=== PATIENT | male | born 1980 | race Caucasian/White ===

== ENCOUNTER 2019-01-25 12:54 | Emergency (ER) | payer OTHER ==
[~2019-01-25] VITALS: Ht 172.7 cm; Wt 98.0 kg
[2019-01-25] MEDS ORDERED: BENZONATATE 100 MG CAPSULE. PO ONE (13:15)
[2019-01-25] MEDS ORDERED: predniSONE 10 MG TABLET PO ONE (13:15)
[2019-01-25] MEDS ORDERED: IPRATRPIUM/ALBUTEROL 0.5/2.5MG 3 ML NEBU. NEB ONE (13:15)
--- NOTE | 2019-01-25 13:21 | PHYS DOC ---
Past Medical History Past Medical History: No Pertinent History Past Surgical History: Other Additional Past Surgical Histo: ORTHOPEDIC Additional Information: 1 PPD Alcohol Use: None Drug Use: None Adult General Chief Complaint Chief Complaint: SHORTNESS OF BREATH HPI HPI Patient is a 38 year old male with history of smoking who presents to the ED complaining of cough productive in nature with shortness of breath that began 5 days ago. Patient states for the last couple days he has noted he has blood tinged sputum. Patient denies any fever. Denies any nasal congestion. Review of Systems Review of Systems Constitutional: Denies fever or chills [] Eyes: Denies change in visual acuity, redness, or eye pain [] HENT: Denies nasal congestion or sore throat [] Respiratory: Reports bloody sputum cough and shortness of breath [] Cardiovascular: No additional information not addressed in HPI [] GI: Denies abdominal pain, nausea, vomiting, bloody stools or diarrhea [] : Denies dysuria or hematuria [] Musculoskeletal: Denies back pain or joint pain [] Integument: Denies rash or skin lesions [] Neurologic: Denies headache, focal weakness or sensory changes [] All other systems were reviewed and found to be within normal limits, except as documented in this note. Current Medications Current Medications Current Medications Medications (Trade) Dose Ordered Sig/Denise Start Time Stop Time Status Last Admin Dose Admin Albuterol/ Ipratropium (Duoneb) 3 ml 1X ONCE 01/25/19 13:15 01/25/19 13:19 DC 01/25/19 13:31 3 ML Benzonatate (Tessalon Perle) 100 mg 1X ONCE 01/25/19 13:15 01/25/19 13:19 DC 01/25/19 13:27 100 MG Prednisone (Prednisone) 50 mg 1X ONCE 01/25/19 13:15 01/25/19 13:19 DC 01/25/19 13:27 50 MG Allergies Allergies Allergies Coded Allergies Type Severity Reaction Last Updated Verified No Known Drug Allergies 01/25/19 No Physical Exam Physical Exam Constitutional: Well developed, well nourished, no acute distress, non-toxic appearance. [] HENT: Normocephalic, atraumatic, bilateral external ears normal, oropharynx moist, no oral exudates, nose normal. [] Eyes: PERRLA, EOMI, conjunctiva normal, no discharge. [] Neck: Normal range of motion, no tenderness, supple, no stridor. [] Cardiovascular:Heart rate regular rhythm, no murmur [] Lungs & Thorax: Bilateral breath sounds clear to auscultation [] Abdomen: Bowel sounds normal, soft, no tenderness, no masses, no pulsatile masses. [] Skin: Warm, dry, no erythema, no rash. [] Back: No tenderness, no CVA tenderness. [] Extremities: No tenderness, no cyanosis, no clubbing, ROM intact, no edema. [] Neurologic: Alert and oriented X 3, normal motor function, normal sensory function, no focal deficits noted. [] Psychologic: Affect normal, judgement normal, mood normal. [] Current Patient Data Vital Signs Vital Signs Date Time Temp Pulse Resp B/P (MAP) Pulse Ox O2 Delivery O2 Flow Rate FiO2 01/25/19 15:40 86 20 134/92 (106) 94 Room Air 01/25/19 14:40 2.5 01/25/19 13:06 98.6 98.6 Lab Values Laboratory Tests Test 01/25/19 13:20 White Blood Count 10.2 x10^3/uL (4.0-11.0) Red Blood Count 6.05 x10^6/uL (4.30-5.70) H Hemoglobin 18.4 g/dL (13.0-17.5) H Hematocrit 52.9 % (39.0-53.0) Mean Corpuscular Volume 88 fL (79-100) Mean Corpuscular Hemoglobin 30 pg (25-35) Mean Corpuscular Hemoglobin Concent 35 g/dL (31-37) Red Cell Distribution Width 13.2 % (11.5-14.5) Platelet Count 212 x10^3/uL (140-400) Neutrophils (%) (Auto) 72 % (31-73) Lymphocytes (%) (Auto) 17 % (24-48) L Monocytes (%) (Auto) 5 % (0-9) Eosinophils (%) (Auto) 5 % (0-3) H Basophils (%) (Auto) 1 % (0-3) Neutrophils # (Auto) 7.4 x10^3uL (1.8-7.7) Lymphocytes # (Auto) 1.8 x10^3/uL (1.0-4.8) Monocytes # (Auto) 0.5 x10^3/uL (0.0-1.1) Eosinophils # (Auto) 0.5 x10^3/uL (0.0-0.7) Basophils # (Auto) 0.1 x10^3/uL (0.0-0.2) D-Dimer (Jade) < 0.27 ug/mlFEU Sodium Level 141 mmol/L (136-145) Potassium Level 3.9 mmol/L (3.5-5.1) Chloride Level 103 mmol/L (98-107) Carbon Dioxide Level 30 mmol/L (21-32) Anion Gap 8 (6-14) Blood Urea Nitrogen 20 mg/dL (8-26) Creatinine 1.3 mg/dL (0.7-1.3) Estimated GFR (Cockcroft-Gault) 61.5 Glucose Level 155 mg/dL (70-99) H Calcium Level 9.2 mg/dL (8.5-10.1) Troponin I Quantitative < 0.017 ng/mL (0.000-0.055) Laboratory Tests 01/25/19 13:20 Laboratory Tests 01/25/19 13:20 EKG EKG 13:[address] Young sinus tachycardia, HR 102 no STEMI[] Radiology/Procedures Radiology/Procedures []PROCEDURE: CHEST PA & LATERAL Chest, PA and Lateral: Technique: PA and lateral views of the chest were obtained. History: Cough. Comparison: None. Findings: The cardiomediastinal silhouette grossly appears unremarkable. Minimal right lung base airspace opacities likely atelectasis or infiltrates. IMPRESSION: Minimal right lung base airspace opacities likely atelectasis or infiltrates. Electronically signed by: Alexandre Avilez MD (01/25/2019 2:23 PM) [facility] DICTATED and SIGNED BY: ALEXANDRE AVILEZ MD DATE: 01/25/19 142 Course & Med Decision Making Course & Med Decision Making Pertinent Labs and Imaging studies reviewed. (See chart for details) This is a 38-year-old male patient with history of smoking presenting today with a productive cough with bloody sputum for 5 days. Patient was advised to consider smoking cessation. On arrival to the ED temperature was 98.6, heart rate 105, respiration 20 room air, blood pressure 172/91, O2 sats 96%. CBC with a normal WBC, BMP with no acute findings, d-dimer is normal. Chest x-ray noted for possible infiltrate or atelectasis. Considering his symptoms I will treat this patient for pneumonia with doxycycline. His blood pressure was high on arrival to the ED. Advised patient to start following up with the PCP to make sure he does not have hypertension. His provided return precautions and discharged in stable condition. Dragon Disclaimer Dragon Disclaimer This electronic medical record was generated, in whole or in part, using a voice recognition dictation system. Departure Departure Impression: Primary Impression: Smoking addiction Additional Impressions: Right lower lobe pneumonia Elevated blood pressure reading Disposition: HOME, SELF-CARE Condition: STABLE Patient Instructions: Hypertension, Pneumonia, Adult, Smoking Cessation Additional Instructions: You were evaluated in the emergency room on the chest x-ray was suspicious for pneumonia. We'll put you on antibiotics, take them to completion. Please consider smoking cessation. Please follow-up with your primary care doctor, your blood pressure is running high. Scripts Albuterol Sulfate (Proair Hfa) 8.5 Gm Hfa.aer.ad 1 PUFF INH PRN Q6HRS PRN for SHORTNESS OF BREATH, #1 INHALER Prov: CHAYO BROWN APRN 01/25/19 Benzonatate (TESSALON PERLE) 100 Mg Capsule 1 CAP PO TID, #30 CAP Prov: CHAYO BROWN APRN 01/25/19 Doxycycline Hyclate (DOXYCYCLINE HYCLATE) 100 Mg Tablet 1 TAB PO BID, #14 TAB Prov: CHAYO BROWN APRN 01/25/19 Problem Qualifiers Additional Impressions: Right lower lobe pneumonia Pneumonia type: due to unspecified organism Qualified Codes: J18.1 - Lobar pneumonia, unspecified organism CHAYO BROWN APRN January 25, 2019 13:21
[2019-01-25 13:44] LABS: BASO # 0.1 x10^3/uL (0.0-0.2); BASO % 1 % (0-3); EOS # 0.5 x10^3/uL (0.0-0.7); EOS % 5 % (0-3); HEMATOCRIT 52.9 % (39.0-53.0); HEMOGLOBIN 18.4 g/dL (13.0-17.5); LYMPH # 1.8 x10^3/uL (1.0-4.8); LYMPH % 17 % (24-48); MEAN CORPUSCULAR HEMOGLOBIN 30 pg (25-35); MEAN CORPUSCULAR HGB CONC 35 g/dL (31-37); MEAN CORPUSCULAR VOLUME 88 fL (79-100); MONO # 0.5 x10^3/uL (0.0-1.1); MONO % 5 % (0-9); NEUT # 7.4 x10^3uL (1.8-7.7); NEUT % 72 % (31-73); PLATELET COUNT 212 x10^3/uL (140-400); RED BLOOD COUNT 6.05 x10^6/uL (4.30-5.70); RED CELL DISTRIBUTION WIDTH 13.2 % (11.5-14.5); WHITE BLOOD COUNT 10.2 x10^3/uL (4.0-11.0)
[2019-01-25 13:48] LABS: CALCIUM 9.2 mg/dL (8.5-10.1); CREATININE 1.3 mg/dL (0.7-1.3); GFR 61.5; POTASSIUM 3.9 mmol/L (3.5-5.1)
--- NOTE | 2019-01-25 14:25 | RAD ---
Chest, PA and Lateral: Technique: PA and lateral views of the chest were obtained. History: Cough. Comparison: None. Findings: The cardiomediastinal silhouette grossly appears unremarkable. Minimal right lung base airspace opacities likely atelectasis or infiltrates. IMPRESSION: Minimal right lung base airspace opacities likely atelectasis or infiltrates. Electronically signed by: Alexandre Avilez MD (01/25/2019 2:23 PM) [facility]
[2019-01-25 15:40] VITALS: BP 134/92
[2019-01-25] MEDS ORDERED: ALBU2.5V8 INH (15:43)
[2019-01-25] MEDS ORDERED: BENZ100C PO (15:43)
[2019-01-25] MEDS ORDERED: DOXY100T PO (15:43)
--- NOTE | 2019-01-27 07:10 | EKG ---
[facility] [address] [place] [address] Test Date: 2019-01-25 Test Time: 13:12:46 Pat Name: TARYN AGUILAR Department: Room: Gender: M Long Term: : 1980 Requested By: CHAYO BROWN Order Number: [id number] Reading MD: Juan F Sheikh Measurements Intervals [place] Rate: 102 P: 42 [place]: 156 QRS: -62 QRSD: 90 T: 20 QT: 324 QTc: 426 Interpretive Statements SINUS TACHYCARDIA Electronically Signed On 02-14-2019 12:41:54 CDT by Juan F Sheikh
== END 2019-01-25 15:48 | disposition home or self-care (01) ==
LOC: ER 12:54
DX: J18.1 Lobar pneumonia, unspecified organism (principal); R03.0 Elevated blood-pressure reading, without diagnosis of hypertension; F17.200 Nicotine dependence, unspecified, uncomplicated
CPT/HCPCS: 36415; 71046; 80048; 84484; 85025; 85379; 93005; 94640; 99285; J7512; J7620

== ENCOUNTER 2019-01-26 15:14 | Inpatient (IN) | payer OTHER ==
[~2019-01-26] VITALS: Ht 172.7 cm; Wt 98.4 kg
[~2019-01-26 15:14] MED LIST: ALBU2.5V8 INH; BENZ100C PO; DOXY100T PO
[2019-01-26] MEDS ORDERED: methylPREDNISolone SOD SUCC PF 125 MG/2 ML VIAL. IV ONE (15:30)
[2019-01-26] MEDS ORDERED: IPRATRPIUM/ALBUTEROL 0.5/2.5MG 3 ML NEBU. NEB ONE (15:30)
[2019-01-26] MEDS ORDERED: cefTRIAXone IV Push 1 GM VIAL. IVP ONE (15:30)
[2019-01-26 16:02] LABS: BASO # 0.1 x10^3/uL (0.0-0.2); BASO % 1 % (0-3); EOS # 0.4 x10^3/uL (0.0-0.7); EOS % 2 % (0-3); HEMATOCRIT 49.7 % (39.0-53.0); HEMOGLOBIN 17.2 g/dL (13.0-17.5); LYMPH # 2.4 x10^3/uL (1.0-4.8); LYMPH % 14 % (24-48); MEAN CORPUSCULAR HEMOGLOBIN 30 pg (25-35); MEAN CORPUSCULAR HGB CONC 35 g/dL (31-37); MEAN CORPUSCULAR VOLUME 87 fL (79-100); MONO # 0.9 x10^3/uL (0.0-1.1); MONO % 5 % (0-9); NEUT # 14.1 x10^3uL (1.8-7.7); NEUT % 79 % (31-73); PLATELET COUNT 203 x10^3/uL (140-400); RED CELL DISTRIBUTION WIDTH 13.9 % (11.5-14.5); WHITE BLOOD COUNT 17.9 x10^3/uL (4.0-11.0)
--- NOTE | 2019-01-26 16:09 | RAD ---
Chest, PA and Lateral: Technique: PA and lateral views of the chest were obtained. History: Cough. Comparison: 01/25/2019. Findings: The heart and pulmonary vasculature appear within normal limits. Minimal bibasilar lung airspace opacities likely atelectasis or infiltrates.. The pleural margins are clear. Impression: Mild bibasilar lung airspace opacities likely atelectasis or infiltrate similar to prior exam.. Electronically signed by: Alexandre Avilez MD (01/26/2019 4:06 PM) [facility]
[2019-01-26 16:10] LABS: CALCIUM 9.1 mg/dL (8.5-10.1); CREATININE 1.2 mg/dL (0.7-1.3); GFR 67.4; POTASSIUM 3.5 mmol/L (3.5-5.1)
[2019-01-26 16:30] LABS: % EOS 2 % (0-5); % LYMPHS 19 % (24-48); % MONOS 4 % (0-10); % SEGS 74 % (35-66)
[2019-01-26] MEDS ORDERED: IBUPROFEN 400 MG TABLET. PO ONE (16:30)
[2019-01-26] MEDS ORDERED: HYDROcodone/APAP 5/325MG 1 TAB TABLET PO ONE (16:30)
[2019-01-26 16:31] LABS: % BANDS 1 % (0-9); PLT ESTIMATE ADEQUATE (ADEQUATE)
[2019-01-26 16:36] LABS: BARBITURATES NEG (NEG); BENZODIAZEPINES NEG (NEG); CANNABINOIDS NEG (NEG); COCAINE NEG (NEG); METHADONE NEG (NEG); OPIATES NEG (NEG); PHENCYCLIDINE NEG (NEG)
[2019-01-26 16:37] LABS: AMPHETAMINE/METHAMPHETAMINE NEG (NEG)
[2019-01-26] MEDS: IV NORMAL SALINE 1000ML BAG 1,000 ML IV SCH ×3 (16:42→23:20)
[2019-01-26] MEDS ORDERED: AZITHRMYCN 500MG IVPB FOR OMNI 250 ML IV ONE (16:45)
--- NOTE | 2019-01-26 16:47 | PHYS DOC ---
Past Medical History Past Medical History: No Pertinent History (CHAYO BROWN APRN) Past Surgical History: Other Additional Past Surgical Histo: ORTHOPEDIC (CHAYO BROWN APRN) Alcohol Use: None Drug Use: None (CHAYO BROWN APRN) Adult General Chief Complaint Chief Complaint: SHORTNESS OF BREATH HPI HPI Patient is a 38 year old white male with a history of smoking who presents today with worsening cough and shortness of breath. Patient was seen in the ED yesterday, was diagnosed with mild pneumonia, was discharged with doxycycline, he was given Solu-Medrol yesterday as well as breathing treatment. He states symptoms did not improve the got worse. He states he took 3 doses of doxycycline and has had nausea and vomiting from the doxycycline. Patient denies any fever. His states his head is hurting from the coughing as well as his chest. Patient is in the ED with the significant other who is complaining stating he should've admitted patient yesterday. They've informed them yesterday this patient is young and can be managed as an outpatient and did not meet any criteria for hospitalization for possible pneumonia. continues to complain stating"is the older than yesterday, because you didn't admit him yesterday"informed patient did not meet criteria for admission yesterday. (CHAYO BROWN APRN) Review of Systems Review of Systems Constitutional: Denies fever or chills [] Eyes: Denies change in visual acuity, redness, or eye pain [] HENT: Denies nasal congestion or sore throat [] Respiratory: Reports cough and shortness of breath [] Cardiovascular: No additional information not addressed in HPI [] GI: Denies abdominal pain, nausea, vomiting, bloody stools or diarrhea [] : Denies dysuria or hematuria [] Musculoskeletal: Denies back pain or joint pain [] Integument: Denies rash or skin lesions [] Neurologic: Reports headache denies focal weakness or sensory changes [] All other systems were reviewed and found to be within normal limits, except as documented in this note. (CHAYO BROWN APRN) Current Medications Current Medications Current Medications Medications (Trade) Dose Ordered Sig/Denise Start Time Stop Time Status Last Admin Dose Admin Acetaminophen/ Hydrocodone Bitart (Lortab 5/325) 2 tab 1X ONCE 01/26/19 16:30 01/26/19 16:31 DC 01/26/19 16:32 2 TAB Albuterol/ Ipratropium (Duoneb) 3 ml 1X ONCE 01/26/19 15:30 01/26/19 15:33 DC 01/26/19 16:46 3 ML Azithromycin 250 ml @ 250 mls/hr 1X ONCE 01/26/19 16:45 01/26/19 17:44 DC 01/26/19 17:09 250 MLS/HR Ceftriaxone Sodium (Rocephin) 1 gm 1X ONCE 01/26/19 15:30 01/26/19 15:33 DC 01/26/19 16:09 1 GM Ibuprofen (Motrin) 800 mg 1X ONCE 01/26/19 16:30 01/26/19 16:31 DC 01/26/19 16:32 800 MG Methylprednisolone Sodium Succinate (SOLU-Medrol 125MG VIAL) 125 mg 1X ONCE 01/26/19 15:30 01/26/19 15:33 DC 01/26/19 16:09 125 MG Sodium Chloride 1,000 ml @ 166.667 mls/hr Q6H 01/26/19 16:31 01/27/19 04:51 01/26/19 18:38 166.667 MLS/HR (RAFI KAMARA DO) Allergies Allergies Allergies Coded Allergies Type Severity Reaction Last Updated Verified No Known Drug Allergies 01/25/19 No (RAFI KAMARA DO) Physical Exam Physical Exam Constitutional: Well developed, well nourished, no acute distress, non-toxic appearance. [] HENT: Normocephalic, atraumatic, bilateral external ears normal, oropharynx moist, no oral exudates, nose normal. [] Eyes: PERRLA, EOMI, conjunctiva normal, no discharge. [] Neck: Normal range of motion, no tenderness, supple, no stridor. [] Cardiovascular:Heart rate regular rhythm, no murmur [] Lungs & Thorax: Patient is actively coughing in the ED. Tight chest with diminished breath sounds. Abdomen: Bowel sounds normal, soft, no tenderness, no masses, no pulsatile masses. [] Skin: Warm, dry, no erythema, no rash. [] Back: No tenderness, no CVA tenderness. [] Extremities: No tenderness, no cyanosis, no clubbing, ROM intact, no edema. [] Neurologic: Alert and oriented X 3, normal motor function, normal sensory function, no focal deficits noted. [] Psychologic: Affect normal, judgement normal, mood normal. [] (CHAYO BROWN APRN) Current Patient Data Vital Signs Vital Signs Date Time Temp Pulse Resp B/P (MAP) Pulse Ox O2 Delivery O2 Flow Rate FiO2 01/26/19 17:00 72 16 122/78 (93) 98 Room Air 01/26/19 15:15 98.3 98.3 (KAMARARAFI DO) Lab Values Laboratory Tests Test 01/26/19 15:48 01/26/19 16:20 White Blood Count 17.9 x10^3/uL (4.0-11.0) H Red Blood Count 5.70 x10^6/uL (4.30-5.70) Hemoglobin 17.2 g/dL (13.0-17.5) Hematocrit 49.7 % (39.0-53.0) Mean Corpuscular Volume 87 fL (79-100) Mean Corpuscular Hemoglobin 30 pg (25-35) Mean Corpuscular Hemoglobin Concent 35 g/dL (31-37) Red Cell Distribution Width 13.9 % (11.5-14.5) Platelet Count 203 x10^3/uL (140-400) Neutrophils (%) (Auto) 79 % (31-73) H Lymphocytes (%) (Auto) 14 % (24-48) L Monocytes (%) (Auto) 5 % (0-9) Eosinophils (%) (Auto) 2 % (0-3) Basophils (%) (Auto) 1 % (0-3) Neutrophils # (Auto) 14.1 x10^3uL (1.8-7.7) H Lymphocytes # (Auto) 2.4 x10^3/uL (1.0-4.8) Monocytes # (Auto) 0.9 x10^3/uL (0.0-1.1) Eosinophils # (Auto) 0.4 x10^3/uL (0.0-0.7) Basophils # (Auto) 0.1 x10^3/uL (0.0-0.2) Segmented Neutrophils % 74 % (35-66) H Band Neutrophils % 1 % (0-9) Lymphocytes % 19 % (24-48) L Monocytes % 4 % (0-10) Eosinophils % 2 % (0-5) Metamyelocytes % % (0-0) Platelet Estimate Adequate (ADEQUATE) Large Platelets Occ D-Dimer (Jade) < 0.27 ug/mlFEU Sodium Level 142 mmol/L (136-145) Potassium Level 3.5 mmol/L (3.5-5.1) Chloride Level 105 mmol/L (98-107) Carbon Dioxide Level 26 mmol/L (21-32) Anion Gap 11 (6-14) Blood Urea Nitrogen 21 mg/dL (8-26) Creatinine 1.2 mg/dL (0.7-1.3) Estimated GFR (Cockcroft-Gault) 67.4 Glucose Level 104 mg/dL (70-99) H Lactic Acid Level 2.5 mmol/L (0.4-2.0) H Calcium Level 9.1 mg/dL (8.5-10.1) Troponin I Quantitative < 0.017 ng/mL (0.000-0.055) Ethyl Alcohol Level < 10 mg/dL (0-10) Urine Opiates Screen Neg (NEG) Urine Methadone Screen Neg (NEG) Urine Barbiturates Neg (NEG) Urine Phencyclidine Screen Neg (NEG) Urine Amphetamine/Methamphetamine Neg (NEG) Urine Benzodiazepines Screen Neg (NEG) Urine Cocaine Screen Neg (NEG) Urine Cannabinoids Screen Neg (NEG) Urine Ethyl Alcohol Neg (NEG) Laboratory Tests 01/26/19 15:48 Laboratory Tests 01/26/19 15:48 (RAFI KAMARA DO) EKG EKG Interpreted by Dr. Young sinus rhythm HT 88 no STEMI[] (CHAYO BROWN APRN) Radiology/Procedures Radiology/Procedures []PROCEDURE: CHEST PA & LATERAL Chest, PA and Lateral: Technique: PA and lateral views of the chest were obtained. History: Cough. Comparison: 01/25/2019. Findings: The heart and pulmonary vasculature appear within normal limits. Minimal bibasilar lung airspace opacities likely atelectasis or infiltrates.. The pleural margins are clear. Impression: Mild bibasilar lung airspace opacities likely atelectasis or infiltrate similar to prior exam.. Electronically signed by: Alexandre Avilez MD (01/26/2019 4:06 PM) [facility] DICTATED and SIGNED BY: ALEXNADRE AVILEZ MD DATE: 01/26/19 1608 (CHAYO BROWN APRN) Course & Med Decision Making Course & Med Decision Making Pertinent Labs and Imaging studies reviewed. (See chart for details) This is a 38-year-old male patient with history of smoking presenting today with worsening cough or shortness of breath. Was seen in the ED yesterday, diagnosed with mild pneumonia and discharged on doxycycline. He states symptoms have not improved. Patient is in the ED with the who is complaining stating we should've admitted patient yesterday. Reminded them yesterday patient did not meet criteria for admission. He is young enough to be treated as an outpatient On arrival to the ED CBC with a WBC of 17.9, patient was given Solu-Medrol IV yesterday as well as today which could contribute to this elevated WBC. BMP with no acute findings. Lactic 2.5. Patient was given weight-based sepsis IV fluids based on BMI>30. He was also given Rocephin and azithromycin IV. Please see reassessment during IV fluids infusion Patient's chest x-ray-Mild bibasilar lung airspace opacities likely atelectasis or infiltrate similar to prior exam. Vitals on arrival to the ED temperature 98.3 heart rate 98 O2 sats 96% on room air blood pressure 168/87 respiration 22. I spoke to Dr. Barrera regarding patient's request to be admitted. Dr. Webster this patient does not meet criteria for inpatient admission. He can be handled outpatient. Patient refused to leave, specifically insisting on patient staying overnight. Patient was admitted under Dr. Barrera (CHAYO BROWN APRN) Dragon Disclaimer Dragon Disclaimer This electronic medical record was generated, in whole or in part, using a voice recognition dictation system. (CHAYO BROWN APRN) Departure Departure Impression: Primary Impression: Right lower lobe pneumonia Additional Impressions: Smoking addiction Elevated blood pressure reading Disposition: ADMITTED INPATIENT Condition: STABLE Referrals: NO PCP (PCP) Date and Time of Reassessment Date: January 26, 2019 Time: 17:30 (CHAYO BROWN APRN) Fluid Challenge Is the fluid challenge complet: No (CHAYO BROWN APRN) Vital Signs Vital Signs: Vital Signs Date Time Temp Pulse Resp B/P (MAP) Pulse Ox O2 Delivery O2 Flow Rate FiO2 01/26/19 17:00 72 16 122/78 (93) 98 Room Air 01/26/19 15:15 98.3 98.3 (RAFI KAMARA DO) Temperature Source: Oral (AARONUNGA,CHAYO EDITOR MAP) Respirations Respiratory Effort: Normal Respiratory Pattern: Normal (MUTUNGA,CHAYO EDITOR MAP) Cardiovascular Pulse Rhythm: Regular Heart: Nml rate, reg. rhythm (MUTUNGA,CHAYO EDITOR MAP) Lung Sounds Breath Sounds: Clear (MUTUNGA,CHAYO EDITOR MAP) Capillary Refil Capillary Refill: Lt Hand > 3 seconds (BETSYA,CHAYO EDITOR MAP) Peripheral Pulse Pulse Location: Monitor Pulse Strength: Normal (2+) Pulse Assessment Method: NIBP (BETSYACHAYO EDITOR MAP) Integumentary Skin: Warm Skin Moisture: Moist Skin Turgor: Normal Skin Color: warm Fingernail Color: WNL (AARONRONENJames,CHAYO EDITOR MAP) Attending Signature Attending Signature I have reviewed the [facility]'s note and plan of care. I was available for consultation as needed during the patient's visit in the emergency department. I agree with the clinical impression, plan, and disposition. (RAFI KAMARA DO) Problem Qualifiers Primary Impression: Right lower lobe pneumonia Pneumonia type: due to unspecified organism Qualified Codes: J18.1 - Lobar pneumonia, unspecified organism BETSYCHAYO Ramirez BENJAMÍN January 26, 2019 16:47 RAFI KAMARA DO January 27, 2019 04:45
[2019-01-26 18:24] VITALS: BP 116/63
[2019-01-26] MEDS ORDERED: ACETAMINOPHEN 325 MG TABLET. PO PRN (18:30)
[2019-01-26] MEDS ORDERED: ONDANSETRON PF 4 MG/2 ML VIAL. IV PRN (18:30)
[2019-01-26] MEDS: IPRATRPIUM/ALBUTEROL 0.5/2.5MG 3 ML NEBU. NEB SCH (19:26)
[2019-01-26] MEDS: BUDESONIDE 0.5 MG/2 ML NEBU. NEB SCH (19:27)
[2019-01-26] MEDS ORDERED: KETOROLAC 30 MG/ML VIAL. IV PRN (19:30)
[2019-01-26] MEDS ORDERED: traMADol 50 MG TABLET PO PRN (19:30)
[2019-01-26] MEDS ORDERED: NICOTINE 21MG PATCH. TD SCH (19:45)
[2019-01-26] MEDS: DOXYCYCLINE HYCLATE 100 MG TABLET PO SCH (20:39)
--- NOTE | 2019-01-26 20:40 | NUR ---
Patient admission Pt arrived to the unit on day shift before this RN got on shift. Patient information guide packet was explained and given to pt. Pt and his fiancee continue to express and verbalizes their feelings regarding the treatment and experiences the received down in the ED. All concerns and questions regarding pt's POC was addressed and answered. Pt and his fiancee verbalized understanding. Pt refused to take doxycycline at this time as he stated that it makes him sick last night when he took it. Pt made comfortable in bed. Will continue to monitor pt closely.
[2019-01-26 23:00] VITALS: BP 122/74
--- NOTE | 2019-01-26 23:21 | NUR ---
Pt was on sepsis protocol for a total of 2,060 ml of IV NS infusion. Pt already received a total of 2,000 ml. The remaining 60 ml was not administered at this time. Will continue to monitor pt closely. Encourage pt to continue taking PO fluid. Addendum: 01/26/19 at 2342 by CARLOS MONTES RN Lactic acid came back critical at 4.9. Dr. Barrera notified, orders received to order two more liters of NS running at 200 ml/hr and redraw lactic lab in the morning. Will continue to monitor pt closely.
[2019-01-26] MEDS ORDERED: IV NORMAL SALINE 1000ML BAG 1,000 ML IV ONE (23:45)
[2019-01-27 03:00] VITALS: BP 124/75
[2019-01-27] MEDS ORDERED: IV NORMAL SALINE 1000ML BAG 1,000 ML IV ONE (05:00)
--- NOTE | 2019-01-27 06:57 | EKG ---
[facility] [address] [place] [address] Test Date: 2019-01-26 Test Time: 16:12:17 Pat Name: TARYN AGUILAR Department: Room: 530 Gender: M Segment Producer: : 1980 Requested By: CHAYO BROWN Order Number: [id number] Reading MD: Juan F Sheikh Measurements Intervals [place] Rate: 87 P: 27 TN: 164 QRS: -14 QRSD: 86 T: 22 QT: 334 QTc: 407 Interpretive Statements SINUS RHYTHM LEFTWARD AXIS NON SPECIFIC ST-T ABNORMALITY (ELEVATION) Electronically Signed On 02-14-2019 12:49:35 CDT by Juan F Sheikh
[2019-01-27 07:00] VITALS: BP 125/75
[2019-01-27] MEDS: BUDESONIDE 0.5 MG/2 ML NEBU. NEB SCH (07:26)
[2019-01-27] MEDS: IPRATRPIUM/ALBUTEROL 0.5/2.5MG 3 ML NEBU. NEB SCH (07:26)
[2019-01-27 07:36] LABS: BASO % 0 % (0-3); EOS % 0 % (0-3); HEMATOCRIT 49.1 % (39.0-53.0); HEMOGLOBIN 16.8 g/dL (13.0-17.5); LYMPH # 0.8 x10^3/uL (1.0-4.8); LYMPH % 4 % (24-48); MEAN CORPUSCULAR HEMOGLOBIN 30 pg (25-35); MEAN CORPUSCULAR HGB CONC 34 g/dL (31-37); MEAN CORPUSCULAR VOLUME 89 fL (79-100); MONO # 0.6 x10^3/uL (0.0-1.1); MONO % 3 % (0-9); NEUT # 18.5 x10^3uL (1.8-7.7); NEUT % 93 % (31-73); PLATELET COUNT 212 x10^3/uL (140-400); RED BLOOD COUNT 5.55 x10^6/uL (4.30-5.70); RED CELL DISTRIBUTION WIDTH 13.5 % (11.5-14.5); WHITE BLOOD COUNT 19.9 x10^3/uL (4.0-11.0)
[2019-01-27] MEDS ORDERED: guaiFENesin DM 200MG/20MG 10 ML SYRUP PO PRN (07:45)
[2019-01-27] MEDS ORDERED: ONDANSETRON PF 4 MG/2 ML VIAL. IV PRN (07:45)
[2019-01-27] MEDS ORDERED: NICOTINE 21MG PATCH. TD PRN (07:45)
[2019-01-27 08:08] LABS: CALCIUM 8.6 mg/dL (8.5-10.1); CREATININE 1.1 mg/dL (0.7-1.3); GFR 74.5
[2019-01-27 08:08] LABS: BILIRUBIN,URINE NEGATIVE (NEG); CLARITY,URINE CLEAR; COLOR,URINE YELLOW; NITRITE,URINE NEGATIVE (NEG); PH,URINE 6.5; PROTEIN,URINE NEGATIVE (NEG-TRACE); UROBILINOGEN,URINE 0.2 mg/dL (0.2 mg/dL)
[2019-01-27 08:24] LABS: BACTERIA,URINE 0 /HPF (0-FEW); RBC,URINE 0 /HPF (0-2); SQUAMOUS EPITHELIAL CELL,UR OCC /LPF; WBC,URINE 0 /HPF (0-4)
[2019-01-27] MEDS: DOXYCYCLINE HYCLATE 100 MG TABLET PO SCH ×2 (08:47→08:49)
--- NOTE | 2019-01-27 08:50 | NUR ---
Lauro. now 2.2. Patient refused doxycycline, states it upsets his stomach and he states he told Dr. Ochoa on rounds.
[2019-01-27] MEDS ORDERED: BENZONATATE 100 MG CAPSULE. PO SCH (09:00)
[2019-01-27] MEDS ORDERED: NICOTINE POLACRILEX 2MG GUM PACKAGE of 12. BC PRN (09:30)
--- NOTE | 2019-01-27 09:32 | PDOC1 ---
History and Physical Date of Admission Date of Admission DATE: 01/27/19 TIME: 09:22 Identification/Chief Complaint Chief Complaint Pleuritic chest pain, hurts when he coughs, puky by mouth daily, nausea, upset stomach Source Source: Caregiver, Chart review, Patient History of Present Illness History of Present Illness 38-year-old white male, smokes anywhere between half a pack to a pack a day, no home meds prior to admission. Went to the emergency room 1 day part to admission for pneumonia. Appropriately discharged on Doxy. Got 3 doses at home and felt puky daily, upset stomach, diaphoresis hence came back to the ER and significant other wishes him to be admitted. WBC 15, no fevers, lactate high 3 hence admitted. No listed drug allergy but sounds like adverse reaction to doxycycline- more of intolerance Started on azithromycin and Rocephin WBC 15, no fevers, lactate up to 4.9. Patient looks better. Patient now asks when to discharge but significant other wants him to stay I did consult ID given sepsis, UA is still pending Continue Rocephin for now status post azithromycin at the ER NOW, as i am writing this note, RN tells me patient wants to leave AMA Past Medical History Cardiovascular: No pertinent hx Pulmonary: Bronchitis GI: No pertinent hx Heme/Onc: No pertinent hx Hepatobiliary: No pertinent hx Psych: No pertinent hx Rheumatologic: No pertinent hx Infectious disease: No pertinent hx ENT: No pertinent hx Renal/: No pertinent hx Endocrine: No pertinent hx Dermatology: No pertinent hx Past Surgical History Past Surgical History: No pertinent history Social History Smoke: <1 pack per day ALCOHOL: occassional Drugs: None Current Problem List Problem List Problems Medical Problems: (1) Elevated blood pressure reading Status: Acute (2) Right lower lobe pneumonia Status: Acute (3) Smoking addiction Status: Acute Current Medications Current Medications Current Medications Ceftriaxone Sodium (Rocephin) 1 gm 1X ONCE IVP Last administered on 01/26/19at 16:09; Start 01/26/19 at 15:30; Stop 01/26/19 at 15:33; Status DC Albuterol/ Ipratropium (Duoneb) 3 ml 1X ONCE NEB Last administered on 01/26/19at 16:46; Start 01/26/19 at 15:30; Stop 01/26/19 at 15:33; Status DC Methylprednisolone Sodium Succinate (SOLU-Medrol 125MG VIAL) 125 mg 1X ONCE IV Last administered on 01/26/19 16:09; Start 01/26/19 at 15:30; Stop 01/26/19 at 15:33; Status DC Ibuprofen (Motrin) 800 mg 1X ONCE PO Last administered on 01/26/19 16:32; Start 01/26/19 at 16:30; Stop 01/26/19 at 16:31; Status DC Acetaminophen/ Hydrocodone Bitart (Lortab 5/325) 2 tab 1X ONCE PO Last administered on 01/26/19 16:32; Start 01/26/19 at 16:30; Stop 01/26/19 at 16:31; Status DC Sodium Chloride 1,000 ml @ 166.667 mls/hr Q6H IV Last administered on 01/26/19 18:38; Start 01/26/19 at 16:31; Stop 01/27/19 at 04:51; Status DC Azithromycin 250 ml @ 250 mls/hr 1X ONCE IV Last administered on 01/26/19 17:09; Start 01/26/19 at 16:45; Stop 01/26/19 at 17:44; Status DC Ondansetron HCl (Zofran) 4 mg PRN Q8HRS PRN IV NAUSEA/VOMITING; Start 01/26/19 at 18:30; Stop 01/27/19 at 07:45; Status DC Acetaminophen (Tylenol) 650 mg PRN Q4HRS PRN PO FEVER; Start 01/26/19 at 18:30; Stop 01/27/19 at 18:29 Albuterol/ Ipratropium (Duoneb) 3 ml RTQID NEB Last administered on 01/27/19 07:26; Start 01/26/19 at 20:00; Stop 01/28/19 at 19:58 Ketorolac Tromethamine (Toradol 30mg Vial) 30 mg PRN Q6HRS PRN IV PAIN; Start 01/26/19 at 19:30; Stop 01/31/19 at 19:29 Tramadol HCl (Ultram) 50 mg PRN Q6HRS PRN PO MILD PAIN 1-3 Last administered on 01/26/19at 23:56; Start 01/26/19 at 19:30 Ceftriaxone Sodium (Rocephin) 1 gm Q24H IVP ; Start 01/27/19 at 16:00 Doxycycline Hyclate (Vibra-Tab) 100 mg BID PO ; Start 01/26/19 at 21:00 Budesonide (Pulmicort) 0.5 mg RTBID NEB Last administered on 01/27/19at 07:26; Start 01/26/19 at 20:00 Nicotine (Nicoderm Cq 21mg) 1 patch DAILY TD ; Start 01/26/19 at 19:45; Stop 01/27/19 at 07:47; Status DC Sodium Chloride 1,000 ml @ 200 mls/hr 1X ONCE IV Last administered on 01/26/19at 23:56; Start 01/26/19 at 23:45; Stop 01/27/19 at 04:44; Status DC Sodium Chloride 1,000 ml @ 200 mls/hr 1X ONCE IV Last administered on 01/27/19at 04:33; Start 01/27/19 at 05:00; Stop 01/27/19 at 09:59 Ondansetron HCl (Zofran) 4 mg PRN Q6HRS PRN IV NAUSEA/VOMITING; Start 01/27/19 at 07:45 Guaifenesin (Robitussin Dm) 10 ml PRN Q6HRS PRN PO COUGH; Start 01/27/19 at 07:45 Benzonatate (Tessalon Perle) 100 mg [id number] PO Last administered on 01/27/19at 08:47; Start 01/27/19 at 09:00 Nicotine (Nicoderm Cq 21mg) 1 patch PRN DAILY PRN TD SMOKING CESSATION; Start 01/27/19 at 07:45 Active Scripts Active Proair Hfa (Albuterol Sulfate) 8.5 Gm Hfa.aer.ad 1 Puff INH PRN Q6HRS PRN Doxycycline Hyclate 100 Mg Tablet 1 Tab PO BID Allergies Allergies: Coded Allergies: No Known Drug Allergies (Unverified , 01/25/19) ROS Review of System As per history of present illness, the rest of ROS 14 point negative Physical Exam General: Alert, No acute distress HEENT: Atraumatic, PERRLA Lungs: Clear to auscultation, Normal air movement Heart: S1S2, RRR, no thrills, no rubs, no gallops Cardiovascular: S1, S2 Abdomen: Normal bowel sounds, Soft, No tenderness, No hepatosplenomegaly, No masses Male Genitals Exam: normal genitalia, normal prostate PELVIC: Nml ext genitalia Extremities: No clubbing, No cyanosis, No edema, Normal pulses, No tenderness/swelling Skin: No rashes, No breakdown, No significant lesion Neuro: Normal gait, Normal speech, Strength at 5/5 X4 ext, Normal tone, Sensation intact, Cranial nerves 3-12 NL, Reflexes 2+ Psych/Mental Status: Mental status NL, Mood NL Vitals Vitals Vital Signs Date Time Temp Pulse Resp B/P (MAP) Pulse Ox O2 Delivery O2 Flow Rate FiO2 01/27/19 07:27 97 Room Air 01/27/19 07:00 97.9 69 18 125/75 (92) 97.9 Labs Labs Laboratory Tests Test 01/26/19 15:48 01/26/19 16:20 01/26/19 18:45 01/26/19 22:40 White Blood Count 17.9 x10^3/uL (4.0-11.0) Red Blood Count 5.70 x10^6/uL (4.30-5.70) Hemoglobin 17.2 g/dL (13.0-17.5) Hematocrit 49.7 % (39.0-53.0) Mean Corpuscular Volume 87 fL (79-100) Mean Corpuscular Hemoglobin 30 pg (25-35) Mean Corpuscular Hemoglobin Concent 35 g/dL (31-37) Red Cell Distribution Width 13.9 % (11.5-14.5) Platelet Count 203 x10^3/uL (140-400) Neutrophils (%) (Auto) 79 % (31-73) Lymphocytes (%) (Auto) 14 % (24-48) Monocytes (%) (Auto) 5 % (0-9) Eosinophils (%) (Auto) 2 % (0-3) Basophils (%) (Auto) 1 % (0-3) Neutrophils # (Auto) 14.1 x10^3uL (1.8-7.7) Lymphocytes # (Auto) 2.4 x10^3/uL (1.0-4.8) Monocytes # (Auto) 0.9 x10^3/uL (0.0-1.1) Eosinophils # (Auto) 0.4 x10^3/uL (0.0-0.7) Basophils # (Auto) 0.1 x10^3/uL (0.0-0.2) Segmented Neutrophils % 74 % (35-66) Band Neutrophils % 1 % (0-9) Lymphocytes % 19 % (24-48) Monocytes % 4 % (0-10) Eosinophils % 2 % (0-5) Metamyelocytes % % (0-0) Platelet Estimate Adequate (ADEQUATE) Large Platelets Occ D-Dimer (Jade) < 0.27 ug/mlFEU Sodium Level 142 mmol/L (136-145) Potassium Level 3.5 mmol/L (3.5-5.1) Chloride Level 105 mmol/L (98-107) Carbon Dioxide Level 26 mmol/L (21-32) Anion Gap 11 (6-14) Blood Urea Nitrogen 21 mg/dL (8-26) Creatinine 1.2 mg/dL (0.7-1.3) Estimated GFR (Cockcroft-Gault) 67.4 Glucose Level 104 mg/dL (70-99) Lactic Acid Level 2.5 mmol/L (0.4-2.0) 3.1 mmol/L (0.4-2.0) 4.9 mmol/L (0.4-2.0) Calcium Level 9.1 mg/dL (8.5-10.1) Troponin I Quantitative < 0.017 ng/mL (0.000-0.055) Ethyl Alcohol Level < 10 mg/dL (0-10) Urine Opiates Screen Neg (NEG) Urine Methadone Screen Neg (NEG) Urine Barbiturates Neg (NEG) Urine Phencyclidine Screen Neg (NEG) Urine Amphetamine/Methamphetamine Neg (NEG) Urine Benzodiazepines Screen Neg (NEG) Urine Cocaine Screen Neg (NEG) Urine Cannabinoids Screen Neg (NEG) Urine Ethyl Alcohol Neg (NEG) Test 01/27/19 06:55 01/27/19 07:55 White Blood Count 19.9 x10^3/uL (4.0-11.0) Red Blood Count 5.55 x10^6/uL (4.30-5.70) Hemoglobin 16.8 g/dL (13.0-17.5) Hematocrit 49.1 % (39.0-53.0) Mean Corpuscular Volume 89 fL (79-100) Mean Corpuscular Hemoglobin 30 pg (25-35) Mean Corpuscular Hemoglobin Concent 34 g/dL (31-37) Red Cell Distribution Width 13.5 % (11.5-14.5) Platelet Count 212 x10^3/uL (140-400) Neutrophils (%) (Auto) 93 % (31-73) Lymphocytes (%) (Auto) 4 % (24-48) Monocytes (%) (Auto) 3 % (0-9) Eosinophils (%) (Auto) 0 % (0-3) Basophils (%) (Auto) 0 % (0-3) Neutrophils # (Auto) 18.5 x10^3uL (1.8-7.7) Lymphocytes # (Auto) 0.8 x10^3/uL (1.0-4.8) Monocytes # (Auto) 0.6 x10^3/uL (0.0-1.1) Eosinophils # (Auto) 0.0 x10^3/uL (0.0-0.7) Basophils # (Auto) 0.0 x10^3/uL (0.0-0.2) Sodium Level 141 mmol/L (136-145) Potassium Level 4.0 mmol/L (3.5-5.1) Chloride Level 107 mmol/L (98-107) Carbon Dioxide Level 23 mmol/L (21-32) Anion Gap 11 (6-14) Blood Urea Nitrogen 16 mg/dL (8-26) Creatinine 1.1 mg/dL (0.7-1.3) Estimated GFR (Cockcroft-Gault) 74.5 Glucose Level 157 mg/dL (70-99) Lactic Acid Level 2.2 mmol/L (0.4-2.0) Calcium Level 8.6 mg/dL (8.5-10.1) Urine Collection Type Unknown Urine Color Yellow Urine Clarity Clear Urine pH 6.5 Urine Specific [place] 1.010 Urine Protein Negative mg/dL (NEG-TRACE) Urine Glucose (UA) Negative mg/dL (NEG) Urine Ketones (Stick) Negative mg/dL (NEG) Urine Blood Negative (NEG) Urine Nitrite Negative (NEG) Urine Bilirubin Negative (NEG) Urine Urobilinogen Dipstick 0.2 mg/dL (0.2 mg/dL) Urine Leukocyte Esterase Negative (NEG) Urine RBC 0 /HPF (0-2) Urine WBC 0 /HPF (0-4) Urine Squamous Epithelial Cells Occ /LPF Urine Bacteria 0 /HPF (0-FEW) Laboratory Tests Test 01/26/19 15:48 01/26/19 16:20 01/26/19 18:45 01/26/19 22:40 White Blood Count 17.9 x10^3/uL (4.0-11.0) Red Blood Count 5.70 x10^6/uL (4.30-5.70) Hemoglobin 17.2 g/dL (13.0-17.5) Hematocrit 49.7 % (39.0-53.0) Mean Corpuscular Volume 87 fL (79-100) Mean Corpuscular Hemoglobin 30 pg (25-35) Mean Corpuscular Hemoglobin Concent 35 g/dL (31-37) Red Cell Distribution Width 13.9 % (11.5-14.5) Platelet Count 203 x10^3/uL (140-400) Neutrophils (%) (Auto) 79 % (31-73) Lymphocytes (%) (Auto) 14 % (24-48) Monocytes (%) (Auto) 5 % (0-9) Eosinophils (%) (Auto) 2 % (0-3) Basophils (%) (Auto) 1 % (0-3) Neutrophils # (Auto) 14.1 x10^3uL (1.8-7.7) Lymphocytes # (Auto) 2.4 x10^3/uL (1.0-4.8) Monocytes # (Auto) 0.9 x10^3/uL (0.0-1.1) Eosinophils # (Auto) 0.4 x10^3/uL (0.0-0.7) Basophils # (Auto) 0.1 x10^3/uL (0.0-0.2) Segmented Neutrophils % 74 % (35-66) Band Neutrophils % 1 % (0-9) Lymphocytes % 19 % (24-48) Monocytes % 4 % (0-10) Eosinophils % 2 % (0-5) Metamyelocytes % % (0-0) Platelet Estimate Adequate (ADEQUATE) Large Platelets Occ D-Dimer (Jade) < 0.27 ug/mlFEU Sodium Level 142 mmol/L (136-145) Potassium Level 3.5 mmol/L (3.5-5.1) Chloride Level 105 mmol/L (98-107) Carbon Dioxide Level 26 mmol/L (21-32) Anion Gap 11 (6-14) Blood Urea Nitrogen 21 mg/dL (8-26) Creatinine 1.2 mg/dL (0.7-1.3) Estimated GFR (Cockcroft-Gault) 67.4 Glucose Level 104 mg/dL (70-99) Lactic Acid Level 2.5 mmol/L (0.4-2.0) 3.1 mmol/L (0.4-2.0) 4.9 mmol/L (0.4-2.0) Calcium Level 9.1 mg/dL (8.5-10.1) Troponin I Quantitative < 0.017 ng/mL (0.000-0.055) Ethyl Alcohol Level < 10 mg/dL (0-10) Urine Opiates Screen Neg (NEG) Urine Methadone Screen Neg (NEG) Urine Barbiturates Neg (NEG) Urine Phencyclidine Screen Neg (NEG) Urine Amphetamine/Methamphetamine Neg (NEG) Urine Benzodiazepines Screen Neg (NEG) Urine Cocaine Screen Neg (NEG) Urine Cannabinoids Screen Neg (NEG) Urine Ethyl Alcohol Neg (NEG) Test 01/27/19 06:55 01/27/19 07:55 White Blood Count 19.9 x10^3/uL (4.0-11.0) Red Blood Count 5.55 x10^6/uL (4.30-5.70) Hemoglobin 16.8 g/dL (13.0-17.5) Hematocrit 49.1 % (39.0-53.0) Mean Corpuscular Volume 89 fL (79-100) Mean Corpuscular Hemoglobin 30 pg (25-35) Mean Corpuscular Hemoglobin Concent 34 g/dL (31-37) Red Cell Distribution Width 13.5 % (11.5-14.5) Platelet Count 212 x10^3/uL (140-400) Neutrophils (%) (Auto) 93 % (31-73) Lymphocytes (%) (Auto) 4 % (24-48) Monocytes (%) (Auto) 3 % (0-9) Eosinophils (%) (Auto) 0 % (0-3) Basophils (%) (Auto) 0 % (0-3) Neutrophils # (Auto) 18.5 x10^3uL (1.8-7.7) Lymphocytes # (Auto) 0.8 x10^3/uL (1.0-4.8) Monocytes # (Auto) 0.6 x10^3/uL (0.0-1.1) Eosinophils # (Auto) 0.0 x10^3/uL (0.0-0.7) Basophils # (Auto) 0.0 x10^3/uL (0.0-0.2) Sodium Level 141 mmol/L (136-145) Potassium Level 4.0 mmol/L (3.5-5.1) Chloride Level 107 mmol/L (98-107) Carbon Dioxide Level 23 mmol/L (21-32) Anion Gap 11 (6-14) Blood Urea Nitrogen 16 mg/dL (8-26) Creatinine 1.1 mg/dL (0.7-1.3) Estimated GFR (Cockcroft-Gault) 74.5 Glucose Level 157 mg/dL (70-99) Lactic Acid Level 2.2 mmol/L (0.4-2.0) Calcium Level 8.6 mg/dL (8.5-10.1) Urine Collection Type Unknown Urine Color Yellow Urine Clarity Clear Urine pH 6.5 Urine Specific [place] 1.010 Urine Protein Negative mg/dL (NEG-TRACE) Urine Glucose (UA) Negative mg/dL (NEG) Urine Ketones (Stick) Negative mg/dL (NEG) Urine Blood Negative (NEG) Urine Nitrite Negative (NEG) Urine Bilirubin Negative (NEG) Urine Urobilinogen Dipstick 0.2 mg/dL (0.2 mg/dL) Urine Leukocyte Esterase Negative (NEG) Urine RBC 0 /HPF (0-2) Urine WBC 0 /HPF (0-4) Urine Squamous Epithelial Cells Occ /LPF Urine Bacteria 0 /HPF (0-FEW) VTE Prophylaxis Ordered VTE Prophylaxis Devices: Yes VTE Pharmacological Prophylaxi: Yes Assessment/Plan Assessment/Plan Bilateral lower lobe haziness/infiltrates versus atelectasis Smoker Sepsis with no organ dysfcn PLAN: I did consult ID regarding the high lactate Recheck labs tomorrow Rocephin and azithromycin The patient wants to leave AMA Cancel ID consult He will sign AMA papers I did give him scripts augmentin and cough med with codeine out of good will NABIL HATCH MD January 27, 2019 09:31
--- NOTE | 2019-01-27 09:38 | NUR ---
Patient states he is leaving, verb. understanding will be against medical advice. Dr. Ochoa states she as already dicussed wit patient and fiancee risks and benefits. He still wants to leave. Leaving the Hospital Against Medical Advice Formed signed and witnessed.
--- NOTE | 2019-01-27 09:43 | NUR ---
police inspector [place] notified patient leaving [facility] and Security notified. Patient refused to wait for acquisitions logistics analyst, this RN escorted patient and his fiancee out, patient had all belongings and prescriptions Dr. Ochoa left for him.
[2019-01-27] MEDS ORDERED: cefTRIAXone IV Push 1 GM VIAL. IVP SCH (16:00)
== END 2019-01-27 09:45 | disposition left against medical advice (07) | DRG 871 ==
LOC: ER 15:14 → 5 NORTH 17:52
PROVIDERS: ADMIT Internal Medicine; ATTEND Internal Medicine
DX: A41.9 Sepsis, unspecified organism (principal); J18.1 Lobar pneumonia, unspecified organism; F17.210 Nicotine dependence, cigarettes, uncomplicated; Z79.899 Other long term (current) drug therapy; Z53.21 Procedure and treatment not carried out due to patient leaving prior to being seen by health care provider
CPT/HCPCS: 36415; 71046; 80048; 80307; 81001; 83605; 84484; 85007; 85025; 85379; 87040; 93005; 94640; 96365; 96375; G0480; J0456; J0696; J2930; J7030; J7620; J7626; 99285-25

== ENCOUNTER 2019-08-13 17:58 | Emergency (ER) | payer SELFPAY ==
[~2019-08-13] VITALS: Ht 172.7 cm; Wt 98.0 kg
[~2019-08-13 17:58] MED LIST changes: +METH4TAB2 PO; +ONDA4TAB12 PO; +VENTOLIN HFA18 GM INH
[2019-08-13 18:29] VITALS: BP 140/79
--- NOTE | 2019-08-13 19:02 | PHYS DOC ---
Past Medical History Past Medical History: Hypertension (RAFI PHILLIPS APRN) Past Surgical History: Other Additional Past Surgical Histo: ORTHOPEDIC,TITANIUM SIVAN RIGHT FEMUR (RAFI PHILLIPS APRN) Alcohol Use: None Drug Use: None (RAFI PHILLIPS APRN) Attending Signature I have participated in the care of this patient and I have reviewed and agree with all pertinent clinical information above including history, exam, and recommendations. (SEVERINO AMADO MD) Adult General Chief Complaint Chief Complaint: HIP PAIN HPI HPI Patient is a 39 year old male who presents with right hip pain has been ongoing for several weeks. He states that the pain is not radiating down his leg. He states he has a history of having titanium rods in his legs. Denies saddle anesthesia, denies any incontinence or urinary issues. Denies trauma. (RAFI PHILLIPS APRN) Review of Systems Review of Systems Constitutional: Denies fever or chills [] Eyes: Denies change in visual acuity, redness, or eye pain [] HENT: Denies nasal congestion or sore throat [] Respiratory: Denies cough or shortness of breath [] Cardiovascular: No additional information not addressed in HPI [] GI: Denies abdominal pain, nausea, vomiting, bloody stools or diarrhea [] : Denies dysuria or hematuria [] Musculoskeletal: Reports back pain. Integument: Denies rash or skin lesions [] Neurologic: Denies headache, focal weakness or sensory changes [] Endocrine: Denies polyuria or polydipsia [] Complete systems were reviewed and found to be within normal limits, except as documented in this note. (RAFI PHILLIPS APRN) Allergies Allergies Allergies Coded Allergies Type Severity Reaction Last Updated Verified No Known Drug Allergies 01/25/19 No (SEVERINO AMADO MD) Physical Exam Physical Exam Constitutional: Well developed, well nourished, no acute distress, non-toxic appearance. [] HENT: Normocephalic, atraumatic, bilateral external ears normal, oropharynx moist, no oral exudates, nose normal. [] Eyes: PERRLA, EOMI, conjunctiva normal, no discharge. [] Neck: Normal range of motion, no tenderness, supple, no stridor. [] Skin: Warm, dry, no erythema, no rash. [] Back: midsternal back tenderness that is the lower right side, no CVA tenderness. [] Extremities: No tenderness, no cyanosis, no clubbing, ROM intact, no edema. [] Neurologic: Alert and oriented X 3, normal motor function, normal sensory function, no focal deficits noted. [] Psychologic: Affect normal, judgement normal, mood normal. [] (RAFI PHILLIPS APRN) Current Patient Data Vital Signs Vital Signs Date Time Temp Pulse Resp B/P (MAP) Pulse Ox O2 Delivery O2 Flow Rate FiO2 08/13/19 18:29 98.3 99 18 140/79 (99) 98 Room Air 98.3 (SEVERINO AMADO MD) EKG EKG [] (RAFI PHILLIPS APRN) Radiology/Procedures Radiology/Procedures [] (RAFI PHILLIPS APRN) Course & Med Decision Making Course & Med Decision Making Pertinent Labs and Imaging studies reviewed. (See chart for details) Discussed with patient that he needs to follow up with a primary care provider for an MRI. A medical screening exam was performed on this patient and the patient does not appear to be having a medical emergency. His symptoms are not of sufficient severity and within reasonable medical probability it is unlikely the absence of immediate medical attention would result in placing the health of the individual (or, with respect to a woman, the health of the woman or her unborn child) in serious jeopardy, serious impairment to bodily functions, or serious dysfunction of any bodily organ or part. If , the patient is not in labor (RAFI PHILLIPS APRN) Dragon Disclaimer Dragon Disclaimer This electronic medical record was generated, in whole or in part, using a voice recognition dictation system. (RAFI PHILLIPS APRN) Departure Departure Impression: Primary Impression: Encounter for medical screening examination Disposition: HOME, SELF-CARE Condition: STABLE Referrals: NO PCP (PCP) Patient Instructions: Medical Screening Exam Additional Instructions: Thank you for visiting [facility]. We appreciate you trusting us with your care. If any additional problems come up don't hesitate to return to visit us. Please follow up with your primary care provider so they can plan additional care if needed and know about the problem that you had. If symptoms worsen come back to the Emergency Department. Any concerning symptoms that start such as chest pain, shortness of air, weakness or numbness on one side of the body, running high fevers or any other concerning symptoms return to the ER. RAFI PHILLIPS APRN Aug 13, 2019 19:02 SEVERINO AMADO MD Aug 14, 2019 03:42
== END 2019-08-13 19:02 | disposition home or self-care (01) ==
LOC: ER 17:58
DX: M25.551 Pain in right hip (principal); M54.5 Low back pain; I10 Essential (primary) hypertension; Z96.7 Presence of other bone and tendon implants
CPT/HCPCS: 99281

== ENCOUNTER 2021-02-25 19:03 | Emergency (ER) | payer MEDICAID ==
[~2021-02-25] VITALS: Ht 172.7 cm; Wt 84.5 kg
[2021-02-25 19:30] VITALS: BP 138/88
[2021-02-25] MEDS ORDERED: TRAM-48 PO (20:29)
[2021-02-25] MEDS ORDERED: CYCL10TA2 PO (20:29)
--- NOTE | 2021-02-25 20:29 | PHYS DOC ---
Past Medical History Past Medical History: No Pertinent History, Hypertension Past Surgical History: Other Additional Past Surgical Histo: ORTHOPEDIC,TITANIUM SIVAN RIGHT FEMUR Smoking Status: Current Every Day Smoker Alcohol Use: None Drug Use: None General Adult EDM: Chief Complaint: SHOUDLER HPI: HPI: Patient is a 40 year old male who presents with a chief complaint of left tricep pain. Patient states sudden onset of pain while ripping up old carpet. Patient has pain with range of motion flexion extension of his left arm. No deformities of the left upper extremity noted and it is neurovascularly intact. Patient has not used any [id number] pain medications. He has full range of motion of his left upper extremity--but pain is elicited. Review of Systems: Review of Systems: Review of systems: Constitutional symptoms- No fever, no chills. Eyes- No Discharge, No Visual Loss Respiratory symptoms- No shortness of breath, No wheezing, No Dyspnea on Exertion Cardiovascular Systems; No chest pain, No Palpitations, No syncope Gastrointestinal symptoms: NO abdominal pain, no nausea, no vomiting or diarrhea. Genitourinary symptoms: No dysuria. Musculoskeletal symptoms: No back pain Positive extremity pain. NEUROLOGICAL Symptoms: No headache, no generalized weakness; No focal Weakness Skin: No rash. Heart Score: C/O Chest Pain: N/A Risk Factors: Risk Factors: DM, Current or recent (<one month) smoker, HTN, HLP, family history of CAD, obesity. Risk Scores: Score 0 - 3: 2.5% MACE over next 6 weeks - Discharge Home Score 4 - 6: 20.3% MACE over next 6 weeks - Admit for Clinical Observation Score 7 - 10: 72.7% MACE over next 6 weeks - Early Invasive Strategies Allergies: Allergies: Allergies Coded Allergies Type Severity Reaction Last Updated Verified No Known Drug Allergies 01/25/19 No Physical Exam: PE: General: alert, no acute distress. Skin: warm, dry and intact. HENT: bilateral external ears normal, oropharynx moist, nose normal. Head:: Normocephalic, atraumatic. Neck: Trachea midline. Eyes: EOMI, Normal conjunctiva, No drainage CARDIOVASCULAR: Regular rate and rhythm RESPIRATORY: No respiratory distress Back: Full range of motion. Skin: Warm, dry, no erythema, no rash. MUSCULOSKELETAL: Full range of motion lower extremities.left upper extremity examined pain to palpation tries. Patient has full range of motion of left upper extremity but movement creates discomfort. Extremity is neurovascularly intact GASTROINTESTINAL: Abdomen soft without rebound or guarding. NEUROLOGICAL: Alert and noted to person, place and time. No neurological deficits observed Psychiatric: Cooperative. Normal judgment Current Patient Data: Vital Signs: Vital Signs Date Time Temp Pulse Resp B/P (MAP) Pulse Ox O2 Delivery O2 Flow Rate FiO2 02/25/21 19:30 98.8 89 14 138/88 (105) 99 Room Air 98.8 EKG: EKG: [] Radiology/Procedures: Radiology/Procedures: [] Course & Med Decision Making: Course & Med Decision Making Pertinent Labs and Imaging studies reviewed. (See chart for details) [] Ultram and Flexeril prescription Dragon Disclaimer: Dragon Disclaimer: This electronic medical record was generated, in whole or in part, using a voice recognition dictation system. Departure Departure Impression: Primary Impression: Arm pain Additional Impression: Strain of triceps muscle Disposition: 01 HOME / SELF CARE / HOMELESS Condition: STABLE Referrals: NO PCP (PCP) Patient Instructions: Muscle Strain Scripts Cyclobenzaprine Hcl (CYCLOBENZAPRINE HCL) 10 Mg Tablet 1 TAB PO TID, #30 TAB Prov: LYNNETTE WALTON DO 02/25/21 Tramadol Hcl (ULTRAM) 50 Mg Tablet 1 TAB PO PRN Q6HRS PRN for pain MDD 4 Tablet(s) for 7 Days, #28 TAB 0 Refills Prov: LYNNETTE WALTON DO 02/25/21 LYNNETTE WALTON DO Feb 25, 2021 20:29
== END 2021-02-25 20:55 | disposition home or self-care (01) ==
LOC: ER 19:03
DX: S46.312A Strain of muscle, fascia and tendon of triceps, left arm, initial encounter (principal); I10 Essential (primary) hypertension; F17.200 Nicotine dependence, unspecified, uncomplicated; X50.9XXA Other and unspecified overexertion or strenuous movements or postures, initial encounter; Y93.89 Activity, other specified; Y92.89 Other specified places as the place of occurrence of the external cause; Y99.8 Other external cause status
CPT/HCPCS: 99283